=== PATIENT | female | born 1980 | race Caucasian/White ===

== ENCOUNTER 2020-06-16 23:37 | Emergency (ER) | payer SELFPAY ==
[2020-06-17 01:10] LABS: #Monocytes 1.2 10x3/uL (0.0-1.1); #Neutrophils 9.6 10x3/uL (1.5-8.4); %Basophils 0.2 % (0.0-2.0); %Lymphocytes 12.1 % (18.0-47.0); %Neutrophils 77.1 % (40.0-75.0); Hemoglobin 12.4 g/dL (12.0-15.5); Mean Corpuscular HGB CONC 34.5 g/dL (32.0-36.0); Mean Corpuscular Volume 83.9 fl (81.6-98.3); Platelet Count 253 10x3/uL (150-450); RBC Distribution Width 12.1 % (11.5-14.5); Red Blood Cell (RBC) Count 4.28 10x6/uL (3.90-5.03); White Blood Cell (WBC) Count 12.4 10x3/uL (3.5-10.5)
[2020-06-17 01:11] LABS: ALT (SGPT) 36 U/L (8-55); AST (SGOT) 12 U/L (5-34); Albumin 3.6 g/dL (3.5-5.0); Alkaline Phosphatase 117 U/L (40-110); Anion Gap 11 mmol/L (10-20); BUN (Urea Nitrogen) 12 mg/dL (7.0-18.7); Bilirubin, Total 0.7 mg/dL (0.2-1.2); Calc. Creatinine Clearance 0 mL/min (70-130); Calcium 8.8 mg/dL (7.8-10.44); Carbon Dioxide 27 mmol/L (22-29); Chloride 96 mmol/L (98-107); Globulin 2.8 g/dL (2.4-3.5); Glucose 107 mg/dL (70-105); Potassium 4.2 mmol/L (3.5-5.1); Protein, Total 6.4 g/dL (6.0-8.3); Sodium 130 mmol/L (136-145)
[2020-06-17] MEDS ORDERED: Cefepime 2 GM VIAL ONE (01:27)
[2020-06-17 01:32] LABS: Free T4 (Free Thyroxine) 1.98 ng/dL (0.70-1.48); Thyroid Stimulating Hormone Less than 0.0025 uIU/mL (0.35-4.94)
[2020-06-17] MEDS ORDERED: Hydrocortisone Sod Succ/PF 100 mg/2 ml Vial ONE (01:49)
[2020-06-17] MEDS ORDERED: Morphine 4 MG/ML VIAL ONE (01:49)
== END 2020-06-17 05:13 | disposition home or self-care (01) ==
LOC: CSHERS 23:37
DX: L03.113 Cellulitis of right upper limb (principal); I80.8 Phlebitis and thrombophlebitis of other sites; E05.90 Thyrotoxicosis, unspecified without thyrotoxic crisis or storm; D72.829 Elevated white blood cell count, unspecified; E87.1 Hypo-osmolality and hyponatremia; F17.210 Nicotine dependence, cigarettes, uncomplicated; Z79.52 Long term (current) use of systemic steroids; Z79.899 Other long term (current) drug therapy
CPT/HCPCS: 36415; 76999; 80053; 83605; 84439; 84443; 85025; 86140; 87040; 87077; 87149; 87186; 93005; 96365; 96366; 96367; 96375; J0692; J1720; J2270; J3370

== ENCOUNTER 2021-04-28 11:39 | Observation (INO) | payer SELFPAY ==
[2021-04-28 12:28] LABS: #Basophils 0.1 10x3/uL (0.0-0.2); #Monocytes 0.7 10x3/uL (0.0-1.1); #Neutrophils 4.2 10x3/uL (1.5-8.4); %Basophils 0.7 % (0.0-2.0); %Monocytes 9.1 % (0.0-10.0); %Neutrophils 56.9 % (40.0-75.0); Hemoglobin 13.8 g/dL (12.0-15.5); Mean Corpuscular HGB CONC 33.4 g/dL (32.0-36.0); Mean Corpuscular Hemoglobin 29.2 pg (27.0-33.0); Mean Corpuscular Volume 87.5 fl (81.6-98.3); Mean Platelet Volume 8.8 fl (7.4-10.4); Platelet Count 316 10x3/uL (150-450); RBC Distribution Width 12.9 % (11.5-14.5); Red Blood Cell (RBC) Count 4.72 10x6/uL (3.90-5.03); White Blood Cell (WBC) Count 7.5 10x3/uL (3.5-10.5)
[2021-04-28 12:37] LABS: ALT (SGPT) 32 U/L (8-55); AST (SGOT) 23 U/L (5-34); Albumin 3.7 g/dL (3.5-5.0); Alkaline Phosphatase 133 U/L (40-110); Anion Gap 13 mmol/L (10-20); BUN (Urea Nitrogen) 9 mg/dL (7.0-18.7); Bilirubin, Total 0.2 mg/dL (0.2-1.2); Calc. Creatinine Clearance 0 mL/min (70-130); Calcium 8.9 mg/dL (7.8-10.44); Carbon Dioxide 23 mmol/L (22-29); Chloride 103 mmol/L (98-107); Globulin 3.4 g/dL (2.4-3.5); Glucose 102 mg/dL (70-105); Potassium 4.5 mmol/L (3.5-5.1); Protein, Total 7.1 g/dL (6.0-8.3); Sodium 134 mmol/L (136-145)
[2021-04-28] MEDS ORDERED: Levofloxacin 500 mg/D5W 100 ml Premix Bag ONE (13:27)
[2021-04-28] MEDS ORDERED: Neomycin-Polymyxin 1 ML AMP ONE (14:21)
[2021-04-28 14:47] LABS: SARS-CoV-2 NAA Rapid Test Not Detected (NotDetected)
[2021-04-28] MEDS ORDERED: PROPOFOL 20 ML ONE (15:08)
[2021-04-28] MEDS ORDERED: Fentanyl 100 MCG/2 ML VIAL ONE ×2 (15:08→16:26)
[2021-04-28] MEDS ORDERED: Lidocaine 1% PF 5 ML VIAL ONE (15:09)
[2021-04-28] MEDS ORDERED: Ondansetron PF 4 MG/2 ML Vial ONE (15:09)
[2021-04-28] MEDS ORDERED: Esmolol 100 MG/10 ML VIAL ONE (15:12)
[2021-04-28] MEDS ORDERED: Dexmedetomidine 200 MCG/2 ML VIAL ONE (15:15)
[2021-04-28] MEDS ORDERED: Metoprolol Tartrate 5 MG/5 ML VIAL ONE (15:24)
[2021-04-28] MEDS ORDERED: Bupivacaine PF 0.5% 30 ML VIAL ONE (15:36)
[2021-04-28] MEDS ORDERED: HYDROcodone/Acetaminophen 10/325 mg Tablet PO PRN (15:58)
[2021-04-28] MEDS ORDERED: Ondansetron PF 4 MG/2 ML Vial SLOW IVP PRN (15:58)
[2021-04-28] MEDS ORDERED: Acetaminophen 325 MG TAB PO PRN (15:58)
[2021-04-28] MEDS ORDERED: Morphine 2 MG/ML VIAL SLOW IVP PRN (15:58)
[2021-04-28] MEDS ORDERED: Sodium Chloride 0.9% 100 ML IV SCH (16:00)
[2021-04-28] MEDS ORDERED: TETANUS AND DIPHTHERIA TOX/PF 0.5 ML DISP.SYRIN IM SCH (16:00)
[2021-04-28] MEDS: HYDROcodone/Acetaminophen 10/325 mg Tablet PO PRN (17:58)
[2021-04-28 18:27] VITALS: BMI 22.4
[2021-04-28] MEDS: Sodium Chloride 0.9% 1,000 ML IV SCH (19:04)
[2021-04-28] MEDS ORDERED: FLU VACC QS2021-22(6MOS UP)/PF 60 MCG/0.5 ML SYRINGE IM ONE (19:15)
[2021-04-28] MEDS: ALPRAZolam 1 MG TAB PO PRN (20:10)
[2021-04-28] MEDS: Morphine 4 MG/ML VIAL SLOW IVP PRN (21:01)
[2021-04-28] MEDS: VANCOMYCIN 1.25 GM, Admixture Fee 1 EACH in Sodium Chloride 0.9% 250 ML 250 ML IVPB SCH (21:01)
[2021-04-29] MEDS: Sodium Chloride 0.9% 1,000 ML IV SCH ×2 (02:49→14:38)
[2021-04-29 04:38] LABS: #Monocytes 0.8 10x3/uL (0.0-1.1); #Neutrophils 4.3 10x3/uL (1.5-8.4); %Basophils 0.5 % (0.0-2.0); %Lymphocytes 40.8 % (18.0-47.0); %Monocytes 9.2 % (0.0-10.0); %Neutrophils 49.3 % (40.0-75.0); Hemoglobin 12.4 g/dL (12.0-15.5); Mean Corpuscular HGB CONC 33.1 g/dL (32.0-36.0); Mean Corpuscular Volume 87.8 fl (81.6-98.3); Platelet Count 319 10x3/uL (150-450); RBC Distribution Width 13.1 % (11.5-14.5); Red Blood Cell (RBC) Count 4.27 10x6/uL (3.90-5.03); White Blood Cell (WBC) Count 8.7 10x3/uL (3.5-10.5)
[2021-04-29 04:47] LABS: Anion Gap 13 mmol/L (10-20); BUN (Urea Nitrogen) 9 mg/dL (7.0-18.7); Calc. Creatinine Clearance 125 mL/min (70-130); Calcium 8.5 mg/dL (7.8-10.44); Carbon Dioxide 22 mmol/L (22-29); Chloride 108 mmol/L (98-107); Glucose 97 mg/dL (70-105); Potassium 4.5 mmol/L (3.5-5.1); Sodium 138 mmol/L (136-145)
[2021-04-29] MEDS: HYDROcodone/Acetaminophen 10/325 mg Tablet PO PRN ×2 (05:03→10:29)
[2021-04-29 05:07] LABS: Free T4 (Free Thyroxine) 1.37 ng/dL (0.70-1.48); Thyroid Stimulating Hormone Less than 0.0025 uIU/mL (0.35-4.94)
[2021-04-29] MEDS: Morphine 4 MG/ML VIAL SLOW IVP PRN (07:53)
[2021-04-29] MEDS: VANCOMYCIN 1.25 GM, Admixture Fee 1 EACH in Sodium Chloride 0.9% 250 ML 250 ML IVPB SCH ×2 (09:01→20:51)
[2021-04-29] MEDS: oxyCODONE 5 MG TAB PO PRN ×3 (12:21→20:50)
[2021-04-29] MEDS: Acetaminophen 325 MG TAB PO SCH ×2 (12:22→17:18)
[2021-04-29] MEDS: ALPRAZolam 1 MG TAB PO PRN (17:18)
[2021-04-29] MEDS: Propranolol HCl 20 MG TAB PO SCH (20:51)
[2021-04-29] MEDS ORDERED: Methimazole 5 MG TAB PO SCH (21:00)
[2021-04-30] MEDS: ALPRAZolam 1 MG TAB PO PRN ×2 (00:24→10:37)
[2021-04-30] MEDS: Acetaminophen 325 MG TAB PO SCH ×3 (00:26→11:37)
[2021-04-30 05:05] LABS: #Monocytes 0.7 10x3/uL (0.0-1.1); %Basophils 0.4 % (0.0-2.0); %Monocytes 10.1 % (0.0-10.0); %Neutrophils 44.2 % (40.0-75.0); Hemoglobin 12.5 g/dL (12.0-15.5); Mean Corpuscular HGB CONC 33.6 g/dL (32.0-36.0); Mean Corpuscular Hemoglobin 29.5 pg (27.0-33.0); Mean Corpuscular Volume 87.7 fl (81.6-98.3); Platelet Count 313 10x3/uL (150-450); RBC Distribution Width 12.9 % (11.5-14.5); Red Blood Cell (RBC) Count 4.24 10x6/uL (3.90-5.03); White Blood Cell (WBC) Count 6.8 10x3/uL (3.5-10.5)
[2021-04-30 05:09] LABS: Anion Gap 10 mmol/L (10-20); BUN (Urea Nitrogen) 11 mg/dL (7.0-18.7); CRP (Inflammatory) Less than 0.50 mg/dL (= or < 0.5); Calc. Creatinine Clearance 139 mL/min (70-130); Calcium 8.6 mg/dL (7.8-10.44); Carbon Dioxide 26 mmol/L (22-29); Chloride 105 mmol/L (98-107); Glucose 105 mg/dL (70-105); Magnesium 1.8 mg/dL (1.6-2.6); Phosphorus 3.6 mg/dL (2.3-4.7); Potassium 4.7 mmol/L (3.5-5.1); Sodium 136 mmol/L (136-145)
[2021-04-30] MEDS: oxyCODONE 5 MG TAB PO PRN ×2 (05:38→08:46)
[2021-04-30 10:35] LABS: Vancomycin, Trough 5.6 ug/mL
[2021-04-30] MEDS: Propranolol HCl 20 MG TAB PO SCH (10:37)
[2021-04-30] MEDS ORDERED: ADMIXTURE FEE IVPB SCH ×2 (11:00→23:00)
[2021-04-30] MEDS ORDERED: VANCOMYCIN 1.5 GM, Admixture Fee 1 EACH in Sodium Chloride 0.9% 500 ML IVPB SCH (11:00)
[2021-04-30] MEDS ORDERED: VANCOMYCIN IVPB SCH ×2 (11:00→23:00)
[2021-04-30] MEDS ORDERED: SODIUM CHLORIDE IVPB SCH ×2 (11:00→23:00)
[2021-04-30] MEDS ORDERED: Vancomycin HCl 1 GM in Sodium Chloride 0.9% 250 ML 250 ML IVPB SCH (12:00)
[2021-04-30 12:03] LABS: Hemoglobin A1c 5.5 % (4.0-6.0)
[2021-04-30] MEDS ORDERED: Cyclobenzaprine 10 MG TAB PO SCH (15:00)
[2021-04-30 16:03] VITALS: BP 114/56; TEMP 98.8
[2021-05-01] MEDS ORDERED: Lidocaine 5% Patch TD SCH (09:00)
[2021-05-01] MEDS ORDERED: Transdermal Patch Removal TOP SCH (21:00)
== END 2021-04-30 16:14 | disposition home or self-care (01) ==
LOC: CSHERS 11:39 → CSHTELE 17:31
PROVIDERS: ADMIT Orthopaedic Surgery; ATTEND Family Medicine
PROC: 0L970ZZ Drainage of Right Hand Tendon, Open Approach (ICD-10-PCS; principal; 2021-04-28)
DX: L03.011 Cellulitis of right finger (principal); L02.511 Cutaneous abscess of right hand; E05.00 Thyrotoxicosis with diffuse goiter without thyrotoxic crisis or storm; F17.210 Nicotine dependence, cigarettes, uncomplicated; Z79.899 Other long term (current) drug therapy; F41.9 Anxiety disorder, unspecified; H05.20 Unspecified exophthalmos; Z20.822 Contact with and (suspected) exposure to COVID-19
CPT/HCPCS: 36415; 80048; 80053; 80202; 82550; 83036; 83735; 84100; 84439; 84443; 84481; 85025; 85652; 86140; 87040; 96365; 96375; 96376; G0378; J1956; J2270; J2405; J2704; J3010; J3490; J7050; J7070; S0020; U0002

== ENCOUNTER 2023-02-19 17:30 | Emergency (ER) | payer SELFPAY ==
[2023-02-19] MEDS ORDERED: Dexamethasone 10 MG/ML VIAL ONE (18:33)
[2023-02-19] MEDS ORDERED: Acetaminophen 500 MG TAB ONE (18:34)
[2023-02-19 18:43] LABS: SARS-CoV-2 NAA Rapid Test Not Detected (NotDetected)
[2023-02-19] MEDS ORDERED: Ondansetron ODT 4 MG TAB ONE (19:59)
== END 2023-02-19 20:20 | disposition home or self-care (01) ==
LOC: CSHERS 17:30
DX: J10.1 Influenza due to other identified influenza virus with other respiratory manifestations (principal); F17.210 Nicotine dependence, cigarettes, uncomplicated; Z20.822 Contact with and (suspected) exposure to COVID-19
CPT/HCPCS: 71045; J1100; Q0162